=== PATIENT | female | born 1955 | race African-American/Black ===

== ENCOUNTER 2017-06-15 13:15 | Emergency (ER) | payer BC, OTHER ==
[~2017-06-15] VITALS: Ht 157.5 cm; Wt 81.6 kg
[2017-06-15 13:50] VITALS: BP 143/89
[2017-06-15] MEDS ORDERED: GABAPENTIN300 MG ORAL (13:59)
[2017-06-15] MEDS ORDERED: METHOCARBAMOL500 MG ORAL (13:59)
[2017-06-15] MEDS ORDERED: CYCLOBENZAPRINE10 MG ORAL (13:59)
[2017-06-15] MEDS ORDERED: CELEBREX200 MG ORAL (13:59)
[2017-06-15] MEDS ORDERED: OMEPRAZOLE20 M2 ORAL (13:59)
--- NOTE | 2017-06-15 14:58 | Emergency Room Report ---
History of Present Illness General Chief Complaint: Lower Back Pain or Injury Source: Patient Present Illness HPI 61-year-old female presents emergency department complaining of 10 out of 10 in severity pain in the left lower back/ upper buttock area in addition to the posterior eft leg x2 weeks. Patient has been seen in an urgent her multiple times had x-rays performed and has insurance authorization pending for MRI. Patient states she has a history of DVT and that her symptoms in her left lower extremity are consistent with previous symptoms of double posterior calf pain and tenderness. Patient is worried that DVT may be going on as well. Patient denies fevers, chills, recent illness, weakness, erythema, increased temperature palpation. Pt. denies recent travel, does not take control or estrogen replacement. Denies history of cancer. Denies numbness tingling or loss of sensation or gross motor movements of the extremities, incontinence of bowel or bladder. Denies CP, Palpitations, LOC, AMS, dizziness, Changes in Vision, Sensation, paresthesias, or a sudden severe headache. Allergies: Coded Allergies: AMOXICILLIN (Verified Allergy, Unknown, RASH/THROAT CLOSES UP, 06/15/17) CODEINE (Verified Allergy, Unknown, STOMACH UPSET/COLD SWEAT, 06/15/17) HYDROCODONE (Verified Allergy, Unknown, 06/15/17) Patient History Past Medical History: see triage record Past Surgical History: none Pertinent Family History: none Now: No Reviewed Nursing Documentation: PMH: Agreed Nursing Documentation-PM Past Medical History: No Stated History Review of Systems All Other Systems: negative except mentioned in HPI Physical Exam Vital Signs Date Time Temp Pulse Resp B/P (MAP) Pulse Ox O2 Delivery O2 Flow Rate FiO2 06/15/17 13:22 98.2 91 18 145/91 99 Room Air Sp02 EP Interpretation: reviewed, normal General Appearance: no apparent distress, alert, GCS 15, non-toxic Head: normocephalic, atraumatic Eyes: bilateral eye normal inspection, bilateral eye PERRL ENT: hearing grossly normal, normal voice Neck: full range of motion, supple/symm/no masses Respiratory: lungs clear, normal breath sounds, speaking full sentences Cardiovascular #1: regular rate, rhythm, normal capillary refill Cardiovascular #2: 2+ dorsalis pedis (R), 2+ dorsalis pedis (L) Gastrointestinal: non tender, soft Rectal: deferred Genitourinary: normal inspection, no CVA tenderness Musculoskeletal: back normal, gait/station normal, normal range of motion, tender - Left lateral paraspinal ttp, left gluteal ttp, and left posterior thigh ttp. no appreaciable swelling to the left LE, no erthema, no increased temperature to palpation, FROM with pain of the L spine and hip. mild left calf ttp. pt. is NVI Neurologic: alert, oriented x3, responsive, motor strength/tone normal, sensory intact, normal gait, speech normal Psychiatric: judgement/insight normal, memory normal, mood/affect normal Skin: normal color, no rash, warm/dry, well hydrated Medical Decision Making PA Attestation Dr. Haskins is my supervising Physician whom patient management has been discussed with. Diagnostic Impression: Primary Impression: Sciatica of left side ER Course 61-year-old female presents emergency department complaining of 10 out of 10 in severity pain in the left lower back/ upper buttock area in addition to the posterior eft leg x2 weeks. Patient has been seen in an urgent her multiple times had x-rays performed and has insurance authorization pending for MRI. Patient states she has a history of DVT and that her symptoms in her left lower extremity are consistent with previous symptoms of double posterior calf pain and tenderness. Patient is worried that DVT may be going on as well. Patient denies fevers, chills, recent illness, weakness, erythema, increased temperature palpation. pt. denies recent travel, does not take control or estrogen replacement. Denies history of cancer. Denies numbness tingling or loss of sensation or gross motor movements of the extremities, incontinence of bowel or bladder. Denies CP, Palpitations, LOC, AMS, dizziness, Changes in Vision, Sensation, paresthesias, or a sudden severe headache. Ddx considered but are not limited to Fracture, dislocation, contusion, epidural abscess, Sprain/Strain/Spasm Vital signs: are WNL, pt. is afebrile H&PE are most consistent with sciatica Pt. unable to tolerate straight leg raise. ORDERS: -UA: moderate bacteria, few squamous, no leuks or wbc's indicative of contamination. -DUPLEX US LLE: Negative for DVT ED INTERVENTIONS: Soma PO - D/W pt. results of her urine and US imaging. d/w pt. conservative treatment, and that she will need to await her authorization and appt. for MRI that is already being facilitated by her PCP. d/w pt. to return to ED with worsening or new symptoms, otherwise she is stable for close outpatient follow up with pcp. DISCHARGE: At this time pt. is stable for d/c to home. Will provide printed patient care instructions, and any necessary prescriptions. Care plan and follow up instructions have been discussed with the patient prior to discharge. Last Vital Signs Date Time Temp Pulse Resp B/P (MAP) Pulse Ox O2 Delivery O2 Flow Rate FiO2 06/15/17 13:50 98.1 93 17 143/89 99 Room Air Disposition: HOME, SELF-CARE Condition: Stable Scripts Carisoprodol (SOMA) 250 Mg Tablet 250 MG PO Q12HR, #10 TAB Prov: Mary Khan 06/15/17 Referrals: [facility],REFERRING (PCP) Patient Instructions: Sciatica, [id number] Additional Instructions: Take medications as directed. Follow up with a Primary Care Provider in 3-5 days, even if your symptoms have resolved. --Please review list of primary care clinics, if you do not already have a primary care provider Return sooner to ED if new symptoms occur, or current symptoms become worse. Do not drink alcohol, drive, or operate heavy machinery while taking Soma as this may cause drowsiness. - Please note that this Emergency Department Report was dictated using [employer] trainer technology software, occasionally this can lead to erroneous entry secondary to interpretation by the dictation equipment. Mary Khan Jun 15, 2017 14:58
[2017-06-15 15:02] LABS: APPEARANCE,URINE CLEAR; KETONES,URINE NEGATIVE (NEGATIVE); LEUKOCYTE ESTERASE ,URINE NEGATIVE (NEGATIVE); NITRITE,URINE NEGATIVE (NEGATIVE); PH,URINE 5 (4.5-8.0); PROTEIN,URINE NEGATIVE (NEGATIVE); UROBILINOGEN,URINE NORMAL MG/DL (0.0-1.0)
[2017-06-15 15:20] LABS: BACTERIA,URINE MODERATE /HPF; SQUAMOUS EPITHELIAL CELL,UR FEW /LPF (NONE/OCC)
[2017-06-15] MEDS ORDERED: SOMA250 MG PO (15:35)
[2017-06-15 15:48] VITALS: BP_SYST 138; BP_SYST 143; BP_DIAS 86; BP_DIAS 89
== END 2017-06-15 15:49 | disposition home or self-care (01) ==
LOC: EMR 13:55
DX: M54.32 Sciatica, left side (principal); Z86.718 Personal history of other venous thrombosis and embolism; Z88.6 Allergy status to analgesic agent; M79.605 Pain in left leg
CPT/HCPCS: 81003; 87086; 93971; 99283